=== PATIENT | female | born 1970 | race Asian ===

== ENCOUNTER → 2017-10-18 22:27 | Outpatient (CLI) | payer BC, SELFPAY ==
[2017-10-22 09:01] LABS: HPV APTIMA, High Risk Negative (Negative)
== END ==
PROVIDERS: Family Provider Family Medicine; PCP Family Medicine; Visit Provider Nurse Practitioner Women's Health
DX: Z12.4 Encounter for screening for malignant neoplasm of cervix (principal)
CPT/HCPCS: 88175; G0145

== ENCOUNTER → 2018-01-17 07:13 | Outpatient (CLI) | payer BC, SELFPAY ==
--- NOTE | 2018-01-17 07:20 | BI_ITS ---
MAMMOGRAPHY - BILATERAL SCREENING REASON FOR EXAM: Female, 47 years old. Routine annual screening examination. PERTINENT HISTORY: Non-contributory. TECHNIQUE: Digital bilateral breast daniela (3D mammographic acquisition) in the CC and MLO projections. 2-D mediolateral oblique (MLO) and craniocaudad (CC) views of both breasts were obtained. CAD: Full Field Digital Mammography with Computer Added Detection was performed. COMPARISON: Comparison is made with prior outside examination dated May 13, 2016. FINDINGS: Breast Composition: The breasts are heterogeneously dense, which may obscure small masses. There are no dominant masses or suspicious calcifications. No other significant abnormalities are identified. There has been no significant change since the prior study. BI/SCREENING MAMM (CAD), BILAT IMPRESSION: Stable bilateral screening mammogram. Yearly follow-up mammogram recommended. (A) ASSESSMENT CATEGORY: BIRADS Category 1: Negative. A letter regarding these results will be sent to the patient by the facility within 30 days. Approximately 10% of breast cancers are not detected by mammography. A normal mammogram should not delay biopsy of a clinically suspicious abnormality. [id number] Electronically Signed: Rickie Rubio MD at 8:31 EDT Tel [phone], Service support ,
== END ==
PROVIDERS: Family Provider Family Medicine; PCP Family Medicine; Visit Provider Nurse Practitioner Women's Health
DX: Z12.31 Encounter for screening mammogram for malignant neoplasm of breast (principal)
CPT/HCPCS: 77063; 77067

== ENCOUNTER → 2018-05-20 07:48 | Outpatient (CLI) | payer BC, SELFPAY ==
[2018-05-20 09:17] LABS: hCG Titer Quant., Serum < 1 mIU/mL (<9 non-preg)
== END ==
PROVIDERS: Family Provider Family Medicine; PCP Family Medicine; Referring Provider Obstetrics & Gynecology; Visit Provider Obstetrics & Gynecology
DX: O03.9 Complete or unspecified spontaneous abortion without complication (principal)
CPT/HCPCS: 36415; 84702

== ENCOUNTER → 2018-08-03 06:19 | Outpatient (CLI) | payer BC, SELFPAY ==
[2018-08-03 07:49] LABS: Absolute Lymphocyte Count 2.52 X10^3/ul (0.83-4.51); Absolute Neutrophil Count 4.3 X10^3/uL (2.0-7.7); Basophil# 0.02 X10^3/uL; Basophil% 0.3 % (0-1); Eosinophil# 0.19 X10^3/uL; Eosinophils% 2.5 % (0-5); Hematocrit 44.7 % (37-47); Hemoglobin 14.3 g/dl (12.0-15.0); Lymphocyte # 2.52 X10^3/ul (4.0); Lymphocyte % 33.4 % (19-41); Mean Corpuscular Hgb 28.5 pg (27.0-32.0); Mean Platelet Vol. 10.1 fl (6.2-12.0); Monocyte# 0.55 X10^3/uL; Monocyte% 7.3 % (0-10); Neutrophil # 4.26 X10^3/uL (2.7-7.7); Neutrophil % 56.5 % (47-70); Platelet Count 250 K/mm3 (150-450); RBC Distribution Width CV 12.8 % (11.6-14.6); RBC Distribution Width SD 41.2 fl (35.1-43.9); Red Blood Count 5.02 M/mm3 (4.2-5.4); White Blood Count 7.5 K/mm3 (4.4-11.0)
[2018-08-03 07:50] LABS: POSITIVE COUNT NO; POSITIVE DIFFERENTIAL NO; POSITIVE MORPHOLOGY NO
[2018-08-03 08:43] LABS: ALB/GLOB Ratio 0.9 RATIO (0.9-2.4); AST(SGOT) 17 U/L (15-37); Alanine Aminotransfer ALT/SGPT 21 U/L (13-56); Albumin, Serum 3.7 g/dL (3.2-5.0); Alkaline Phosphatase 67 U/L (45-117); Anion Gap 10 (5-15); BUN 12 mg/dL (7-18); BUN/Creat Ratio 17.9 RATIO (10-20); Calcium,Total 8.8 mg/dL (8.5-10.1); Chloride 104 mmol/L (98-107); Cholesterol 193 mg/dL (200); Creatinine, Serum 0.67 mg/dL (0.55-1.02); EST Glomerular Filtration Rate 100 mL/min (>60); Est Glom Filt Rate - Afr Amer 121 mL/min (>60); Globulin 4.2 g/dL (2.2-4.2); Glucose 102 mg/dL (74-106); High Density Lipoprotein 44 mg/dL; Potassium 4.2 mmol/L (3.5-5.1); Protein, Total 7.9 g/dL (6.4-8.2); Sodium Level 140 mmol/L (136-145); Triglycerides 201 mg/dL; Very Low Density Lipoprotein 40 mg/dL (5-40)
[2018-08-03 08:52] LABS: Vitamin D,25 Hydroxy 29.1 ng/mL (29.95-100.01)
--- NOTE | 2018-08-03 09:16 | STRESSREP_ITS ---
Stress Test Report Exercise myocardial perfusion stress test. 48-year-old lady with a history of chest pain. Medications: Clonazepam. Stress protocol: Resting EKG demonstrates normal sinus rhythm with a rate of 90 bpm and frequent premature ventricular complexes noted. Resting blood pressure 120/84 mmHg. The patient exercised according to regular Gaston protocol for total duration of 9 minutes completing stage III of the Gaston protocol. The maximum heart rate attained was 166 bpm which was 95% of maximum predicted heart rate the maximum workload was 10.1 metabolic equivalents. At rest there were no ST or T wave changes noted suggest ischemia. At peak exercise upsloping ST changes were noted we did not meet the criteria for ischemia. The patient was noted to have what appeared to be apparently conducted beats at a rate of approximately 136 bpm. During recovery the patient went back into sinus rhythm with no acute changes. Approximately 2-1/2 minutes into recovery there were frequent premature ventricular complexes which were noted in a pattern of a right bundle branch block. The resting blood pressure 120/84 with a peak blood pressure 140/84 mmHg. Myocardial perfusion protocol. 11.1 mCi of technetium 99m sestamibi was injected at rest. The patient exercised according to regular Gaston protocol for 9 minutes at peak exercise 32 .6 mCi of technetium 99m sestamibi was injected stress images were obtained stress and rest images were reconstructed and compared in the short axis vertical long and horizontal long axis. Gated images were also obtained. Perfusion SPECT analysis: Review of the stress images demonstrate normal uptake of tracer noted in all areas of the myocardium. The resting images similarly demonstrate normal uptake of tracer noted in all areas of the myocardium. No areas of reversibility are noted suggest ischemia. Gated SPECT analysis: Gated ejection fraction is noted to be 80%. Conclusion: Normal exercise myocardial perfusion stress test at a high workload. No clinical angina noted. Aberrantly conducted beats noted asymptomatic. Preserved ejection fraction.
== END ==
PROVIDERS: Family Provider Family Medicine; PCP Family Medicine; Referring Provider Family Medicine; Visit Provider Family Medicine
DX: R07.9 Chest pain, unspecified (principal); E55.9 Vitamin D deficiency, unspecified
CPT/HCPCS: 36415; 78452; 80053; 80061; 82306; 85025; 93017; A9500; A4216

== ENCOUNTER → 2020-06-11 | Outpatient (CLI) | payer BC, SELFPAY | END | disposition home or self-care (01) | PROVIDERS: PCP Family Medicine; Referring Provider Family Medicine; Visit Provider Family Medicine | DX: Z20.828 Contact with and (suspected) exposure to other viral communicable diseases (principal) | CPT/HCPCS: 87635; U0003 ==

== ENCOUNTER → 2021-06-16 11:45 | Outpatient (CLI) | payer BC, SELFPAY ==
[2021-06-16 15:28] LABS: Vitamin D,25 Hydroxy 25.7 ng/mL
[2021-06-16 15:35] LABS: Anion Gap 5 (5-15); BUN 7 mg/dL (7-18); BUN/Creat Ratio 13.1 RATIO (10-20); Calcium,Total 8.7 mg/dL (8.5-10.1); Chloride 104 mmol/L (98-107); Cholesterol 234 mg/dL (200); Creatinine, Serum 0.53 mg/dL (0.55-1.02); EST Glomerular Filtration Rate 129 mL/min (>60); Est Glom Filt Rate - Afr Amer 156 mL/min (>60); Glucose 82 mg/dL (74-106); High Density Lipoprotein 54 mg/dL; Potassium 3.7 mmol/L (3.5-5.1); Sodium Level 136 mmol/L (136-145); Triglycerides 193 mg/dL; Very Low Density Lipoprotein 39 mg/dL (5-40)
== END ==
PROVIDERS: PCP Family Medicine; Visit Provider Family Medicine
DX: Z00.00 Encounter for general adult medical examination without abnormal findings (principal); E55.9 Vitamin D deficiency, unspecified
CPT/HCPCS: 36415; 80048; 80061; 82306

== ENCOUNTER → 2022-06-29 | Outpatient (CLI) | payer BC, SELFPAY ==
--- NOTE | 2022-06-29 10:58 | RAD_ITS ---
STUDY: X-RAY CHEST REASON FOR EXAM: Female, 52 years old. COUGH TECHNIQUE: Single AP portable view of the chest. COMPARISON: None. FINDINGS: The lungs are clear and expanded. There is no demonstrated pleural abnormality. Normal size heart. Normal mediastinum and michael. Normal visualized pulmonary arteries. Normal visualized aortic arch and descending thoracic aorta. There are diffuse degenerative changes of the visualized thoracic spine. Normal visualized ribs, clavicles, and shoulders. There is no demonstrated abnormality of the visualized soft tissue structures of the upper abdomen. RAD/Chest PA and Lateral IMPRESSION: No demonstrated acute cardiopulmonary process. Electronically Signed: Luz Nagel MD at 16:50 EST Reading Location ID and State: [facility] / [place] Tel , Service support ,
[2022-07-02 12:08] LABS: QNTFERON TB Mitogen Value > 10.00 IU/mL (.); QNTFERON TB Nil Value 0.09 IU/mL (.); QNTFERON TB1+ Ag Value 0.11 IU/mL (.); QNTFERON TB2+ Ag Value 0.31 IU/mL (.)
[2022-07-02 17:09] LABS: QNTIFERON TB Positive Criteria Negative (Negative)
== END | disposition home or self-care (01) ==
PROVIDERS: PCP Family Medicine; Referring Provider Internal Medicine Pulmonary Disease; Visit Provider Internal Medicine Pulmonary Disease
DX: R05.9 Cough, unspecified (principal); R06.00 Dyspnea, unspecified
CPT/HCPCS: 36415; 71046; 86480

== ENCOUNTER → 2024-04-11 | Outpatient (CLI) | payer BC, SELFPAY ==
[2024-04-11 10:10] LABS: Anion Gap 7 (5-15); BUN 14 mg/dL (7-18); BUN/Creat Ratio 26.4 RATIO (10-20); Calcium,Total 8.9 mg/dL (8.5-10.1); Chloride 107 mmol/L (98-107); Cholesterol 224 mg/dL (200); Creatinine, Serum 0.53 mg/dL (0.55-1.02); EST Glomerular Filtration Rate 128 mL/min (>60); Est Glom Filt Rate - Afr Amer 155 mL/min (>60); Glucose 106 mg/dL (74-106); High Density Lipoprotein 51 mg/dL; Sodium Level 141 mmol/L (136-145); Triglycerides 144 mg/dL; Very Low Density Lipoprotein 29 mg/dL (5-40)
== END | disposition home or self-care (01) ==
LOC: MTLAB 07:56
PROVIDERS: PCP Family Medicine; Referring Provider Family Medicine; Visit Provider Family Medicine
DX: Z00.00 Encounter for general adult medical examination without abnormal findings (principal)
CPT/HCPCS: 36415; 80048; 80061; 82306

== ENCOUNTER 2024-07-03 08:31 | Day surgery (SDC) | payer BC, SELFPAY ==
[2024-07-03] VITALS (8 sets, daily range): BP systolic 91–112; BP diastolic 69–79; PULSE 83–97; RESP 16; TEMP 36.5–36.7; O2SAT 97–100; BMI 22.1
--- NOTE | 2024-07-03 08:39 | HP.PCM_ITS ---
[facility] - General General Date of Admission: 07/03/24 Date of Service: 07/03/24 Chief Complaint: Screening colonoscopy HPI Jean Paul GILL, is a 54 F who presents today for screening colonoscopy. She is never had a colonoscopy in the past. She has not had any abdominal pain, cramping, chest pain or shortness of breath. Overall she is in very good health. [facility] Medical History (Updated 06/30/24 @ 13:40 by Zahraa Christine) Post-menopausal Non-smoker Gestational diabetes Home Medications ?Medication ?Instructions ?Recorded ?Last Taken ?Type cholecalciferol (vitamin D3) 50 2,000 unit PO QDAY 04/26/24 Unknown History mcg (2,000 unit) capsule Allergy/AdvReac Type Severity Reaction Status Date / Time No Known Allergies Allergy Verified 06/30/24 13:36 Family History (Updated 04/26/24 @ 08:58 by Patt Lemus) Aunt Colon cancer In her 60's to early 70's Surgical History History of appendectomy Social History (Updated 04/26/24 @ 08:54 by Patt Lemus) household members: spouse current occupational status: employed Smoking Status: Never smoker alcohol intake: never substance use type: does not use caffeine: No what type of physical activity do you participate in: none seatbelt use: always do you feel safe at home: Yes additional social history: [employer] Patient is employed ROS Review of Systems ROS Unobtainable: other Constitutional Constitutional: Denies fatigue, fever(s), poor appetite, weight gain or weight loss ENT HEENT: Denies mouth lesions Cardiovascular Cardiovascular: Denies abdominal bloating, abdominal edema or abdominal pain Respiratory/Chest Respiratory/Chest: Denies change in mental status, change in phlegm color, chest congestion or chest tightness Gastrointestinal Gastrointestinal: Denies belching, bloating, change in bowel habits, change in stool character, chewing difficulty, coffee ground emesis, constipation, cramping, diarrhea, dyspepsia, dysphagia, early satiety, excessive flatus, fecal incontinence, heartburn, hematemesis, hematochezia, hemorrhoids, loose stools, melena, nausea, odynophagia, rectal bleeding, tenesmus, vomiting or weight changes Genitourinary Genitourinary: Denies abdominal discomfort, burning urination or itching Musculoskeletal Musculoskeletal: Reports as per HPI; Denies muscle weakness or myalgias Integumentary Integumentary: Denies jaundice Neurologic Neurologic: Denies lack of coordination or weakness Psychiatric Psychiatric: Denies confusion, depression, memory loss, mood swings, paranoia or suicidal ideation Endocrine Endocrinology: Denies systems reviewed and no addt'l complaints, except as documented Hematologic/Lymphatic Hematologic/Lymphatic: Denies anemia, easy bleeding, easy bruising or lymphadenopathy Allergic/Immunologic Allergic/Immunologic: Denies systems reviewed and no addt'l complaints, except as documented Physical Exam Const alert General Appearance: cooperative Orientation / Consciousness: oriented to person HEENT hearing grossly normal bilaterally Head and Scalp: normal to inspection Face and Sinus: face symmetric Nose: external nose normal Mouth: oral and palatal mucosa normal Eyes conjunctivae normal General Eye: normal appearance of both eyes Neck full ROM General: normal visual inspection Lymph Lymphatic: no lymphadenopathy noted Chest inspection of chest normal and palpation of chest normal Chest: symmetrical chest wall rise Resp normal respiratory effort Effort and Inspection: able to speak in complete sentences Cardio regular rate GI non-distended Percussion: normal to percussion Rectal Exam: deferred Neuro Speech: speech normal Gait (Neuro): normal gait Assessment & Plan Assessment/Plan (1) Encounter for screening for malignant neoplasm of colon: PLAN: She was explained alternatives, risk, benefits include not withstanding bleeding, infection, sepsis, perforation, need for charge and . She will have an ASA 3.
--- NOTE | 2024-07-03 08:40 | PRE.ANES_ITS ---
ASA Classification* ASA Classification ASA Classification: 2 Assessment & Plan Anesthesia* Anesthesia Assessment Anesthesia Assessment: Discussed sedation and/or anesthesia options, risks, benefits, and alternatives with patient/parents/legal guardian/POA. Questions invited. The patient/parents/legal guardian/POA seems to understand and agrees to proceed with anesthesia plan. Reviewed the physical assessment, medical history, allergy history and patient home medications list prior to surgery/procedure/anesthetic and documented any changes. Performed airway and anesthesia risk assessments. Anesthesia Type Anesthesia Type: MAC Anesthesia Focused Assessment* Airway Assessment Mouth opens: >3 cm Mallampati Score: II Focused Labs Anesthesia Preop lab: CBC WBC 7.5 K/mm3 (4.4-11.0) 08/03/18 06:30 RBC 5.02 M/mm3 (4.2-5.4) 08/03/18 06:30 Hgb 14.3 g/dl (12.0-15.0) 08/03/18 06:30 Hct 44.7 % (37-47) 08/03/18 06:30 Plt Count 250 K/mm3 (150-450) 08/03/18 06:30 CHEMISTRY Potassium 4.0 mmol/L (3.5-5.1) 04/11/24 07:57 Sodium 141 mmol/L (136-145) 04/11/24 07:57 BUN 14 mg/dL (7-18) 04/11/24 07:57 Creatinine 0.53 mg/dL (0.55-1.02) L 04/11/24 07:57 Glucose 106 mg/dL (74-106) 04/11/24 07:57 TSH 0.85 uIU/mL (0.358-3.74) 09/29/13 07:57 COAG HCG, Quant < 1 mIU/mL (<9 non-preg) 05/20/18 07:51 Pre-Assessment Diagnosis/Proposed Procedure Planned Operative Procedure(s): CSCOPE Anesthesia History 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 When Was Last Pacemaker Check QUESTION #4 FULL TEXT: You/Your Family Experience fever (hyperthermia) with Anesthesia Last Oral Intake Last Oral intake: Last Oral Intake NPO since Meds taken in AM with sips of water? Meds patient instructed to take am of surgery PONV PONV - auto damage insurance appraiser: PONV - auto damage insurance appraiser Female Yes 06/30/24 13:37 HX of Motion Sickness Yes 06/30/24 13:37 HX of N/V After Surgery No 06/30/24 13:37 Non-Smoker Yes 06/30/24 13:37 Duration of Surgery greater No 06/30/24 13:37 than 60 minutes Number of Risk Factors 3 06/30/24 13:37 PONV Score Moderate Risk 06/30/24 13:37 Height & Weight Height & Weight: Anesthesia: Height & Weight Height 4 ft 11 in 04/26/24 08:58 Respiratory Assessment Respiratory Assessment - auto damage insurance appraiser: Respiratory Tract Infection Hx - auto damage insurance appraiser Hx Respiratory Tract Infection No 06/30/24 13:37 STOP Sleep Apnea STOP Sleep Apnea - auto damage insurance appraiser: STOP Sleep Apnea - auto damage insurance appraiser Hx Hypertension No 06/30/24 13:37 Hx Sleep Apnea No 06/30/24 13:37 CPAP BIPAP Do you snore loudly (louder No 06/30/24 13:37 than talking or can be heard Do you often feel tired/ No 06/30/24 13:37 fatigued/ sleepy during daytime? Has anyone observed you stop No 06/30/24 13:37 breathing during sleep? STOP Results Negative 06/30/24 13:37 QUESTION #5 FULL TEXT : Do you snore loudly (louder than talking or can be heard through closed doors)? Tobacco Use History Tobacco Use History - auto damage insurance appraiser: Tobacco Use History - auto damage insurance appraiser Tobacco Use Smoking Status Never smoker 06/30/24 13:37 Hx Tobacco Use No 06/30/24 13:37 Years Smoking Packs Smoked per Day Smoking Cessation Date was within the last 15 years Hx Smoking Cessation Date Hx Smoking Cessation Counseling Hematologic Medial History Hematologic Hx - auto damage insurance appraiser: Hematologic Medical Hx - documentation liaison Hx of Blood Transfusion No 06/30/24 13:37 Hx of Transfusion in last 3 No 06/30/24 13:37 Months Date of Last Transfusion (if within last 3 months) Ever experience any problems No 06/30/24 13:37 with transfusion(s)? Specify any problems Hx of Preganancy in last 3 N/A 06/30/24 13:37 Months Nurse Filling Out Transfusion NBUCHER 06/30/24 13:37 & Questions: Date: 06/30/24 06/30/24 13:37 Time: 13:37 06/30/24 13:37 Patient unable to answer at this time (ie. confused, unrespo /Reproduction History /Reproductive History - auto damage insurance appraiser: /Reproductive Hx- auto damage insurance appraiser Hx Now No 06/30/24 13:37 Gestational Age (in weeks): EDC: Hx Hx Para Hx Section SAB No 06/30/24 13:37 ON LICENSE OF [facility] Medical History Post-menopausal Non-smoker Gestational diabetes Home Medications ?Medication ?Instructions ?Recorded ?Last Taken ?Type cholecalciferol (vitamin D3) 50 2,000 unit PO QDAY 04/26/24 Unknown History mcg (2,000 unit) capsule Allergy/AdvReac Type Severity Reaction Status Date / Time No Known Allergies Allergy Verified 06/30/24 13:36 Family History Aunt Colon cancer In her 60's to early 70's Surgical History History of appendectomy Social History household members: spouse current occupational status: employed Smoking Status: Never smoker alcohol intake: never substance use type: does not use caffeine: No what type of physical activity do you participate in: none seatbelt use: always do you feel safe at home: Yes additional social history: [employer] Patient is employed Review of Systems (Anesthesia) ROS Narrative System reviewed and no additional complaints, except as documented.
--- NOTE | 2024-07-03 10:01 | OP.COLON_ITS ---
Patient Name: Luis Simms Procedure Date: 07/03/2024 9:40 AM Date of : 1970 Age: 54 Procedure: Colonoscopy Indications: Screening for colorectal malignant neoplasm Providers: DO Stephen Sultana MD: Kang Alegre MD Medicines: Monitored Anesthesia Care Patient Profile: This is a 54 year old female. Refer to note in patient chart for documentation of history and physical. Last Colonoscopy: more than 10 years ago. Complications: No immediate complications. Procedure: Pre-Anesthesia Assessment: - Prior to the procedure, a History and Physical was performed, and patient medications and allergies were reviewed. The patient is competent. The risks and benefits of the procedure and the sedation options and risks were discussed with the patient. All questions were answered and informed consent was obtained. Patient identification and proposed procedure were verified by the physician in the pre-procedure area. Mental Status Examination: alert and oriented. Airway Examination: normal oropharyngeal airway and neck mobility. Respiratory Examination: clear to auscultation. CV Examination: normal. Prophylactic Antibiotics: The patient does not require prophylactic antibiotics. Prior Anticoagulants: The patient has taken no anticoagulant or antiplatelet agents except for NSAID medication. ASA Grade Assessment: II - A patient with mild systemic disease. After reviewing the risks and benefits, the patient was deemed in satisfactory condition to undergo the procedure. The anesthesia plan was to use monitored anesthesia care (MAC). Immediately prior to administration of medications, the patient was re-assessed for adequacy to receive sedatives. The heart rate, respiratory rate, oxygen saturations, blood pressure, adequacy of pulmonary ventilation, and response to care were monitored throughout the procedure. The physical status of the patient was re-assessed after the procedure. After I obtained informed consent, the scope was passed under direct vision. Throughout the procedure, the patient's blood pressure, pulse, and oxygen saturations were monitored continuously. The pediatric colonoscope was introduced through the anus and advanced to the cecum, identified by appendiceal orifice and ileocecal valve. The colonoscopy was performed without difficulty. The patient tolerated the procedure well. The quality of the bowel preparation was adequate. The ileocecal valve, appendiceal orifice, and rectum were photographed. Scope In: 9:49:16 AM Scope Withdrawal Time 0 hours 5 minutes 33 seconds Scope Out: 9:58:24 AM Total Procedure Duration Time 0 hours 9 minutes 8 seconds Findings: The perianal and digital rectal examinations were normal. The entire examined colon appeared normal on direct and retroflexion views. Impression: - The entire examined colon is normal on direct and retroflexion views. - No specimens collected. Recommendation: - Discharge patient to home. - Resume previous diet. - Continue present medications. - Repeat colonoscopy in 10 years for screening purposes. Procedure Code(s): --- Professional --- G0121, Colorectal cancer screening; colonoscopy on individual not meeting criteria for high risk CPT copyright 2021 [employer]. All rights reserved. The codes documented in this report are preliminary and upon [employer] review may be revised to meet current compliance requirements. Franklyn Thayer DO 07/03/2024 10:01:40 AM This report has been signed electronically. Number of Addenda: 0 Note Initiated On: 07/03/2024 9:40 AM
--- NOTE | 2024-07-03 10:02 | OP.CCLET_ITS ---
07/03/2024 Kang Alegre MD [address] [phone] Re : Colonoscopy procedure for Luis Simms Dear Dr. Alegre This procedure was performed on Wednesday, July 03, 2024. My impressions and recommendations are as follows: Impressions : - The entire examined colon is normal on direct and retroflexion views. - No specimens collected. Recommendations : - Discharge patient to home. - Resume previous diet. - Continue present medications. - Repeat colonoscopy in 10 years for screening purposes. My findings are described in the full procedure note, which is enclosed. If I can be of further assistance, please feel free to contact me at . Sincerely, Franklyn Thayer, 07/03/2024 10:01:40 AM This report has been signed electronically.
--- NOTE | 2024-07-03 10:05 | PCM.POST.ANE ---
Anesthesia: Postop Eval I Current Vital Signs Temperature: 98 F Pulse Rate: 97 Blood Pressure: 91/69 Respiratory Rate: 16 Pulse Ox: 97 Oxygen Delivery Method: Room Air Assessment Airway patent: Yes Spontaneous unlabored respirations: Yes Mental status: Asleep nausea: No Vomiting: No Anesthesia Complication: No Fluid Hydration Crystalloid volume administer (ml): 40 Total IV fluid infused: 40 Progress Note Anesthesia document: Postop Eval 1 completed: Yes
--- NOTE | 2024-07-03 17:47 | PCM.POSTANE2 ---
Anesthesia Postop Eval I Sum Postop Eval Completion status Anesthesia document: Postop Eval 1 completed: Yes Anesthesia Postop Eval I Summary Anesthesia Postop Eval I Summary: Anesthesia Postop Eval I: Assessment Summary Airway patent Yes 07/03/24 10:06 [email or web address] Spontaneous unlabored Yes 07/03/24 10:06 [email or web address] respirations Mental status Asleep 07/03/24 10:06 [email or web address] nausea No 07/03/24 10:06 [email or web address] Vomiting No 07/03/24 10:06 [email or web address] Anesthesia Postop Eval I: Fluid Summary Crystalloid volume administer 40 07/03/24 10:06 [email or web address] (ml) Colloids volume administered ( ml) Blood Product volume administered (ml) Total IV fluid infused 40 07/03/24 10:06 [email or web address] Anesthesia Postop Eval I: Summary Notes Anesthesia Complication No 07/03/24 10:06 [email or web address] Anesthesia Complication Comment: Post-operative progress note Anesthesia: Postop Eval II Evaluation Mental status: Awake Pain Level: 0 nausea: No Vomiting: No
== END 2024-07-03 10:53 | disposition home or self-care (01) ==
LOC: EN 08:32 → AC 08:33
PROVIDERS: PCP Family Medicine; Referring Provider Family Medicine; Visit Provider Internal Medicine Gastroenterology
PROC: 0DJD8ZZ Inspection of Lower Intestinal Tract, Via Natural or Artificial Opening Endoscopic (ICD-10-PCS; CPT 45378; principal; 2024-07-03 09:25)
DX: Z12.11 Encounter for screening for malignant neoplasm of colon (principal)
CPT/HCPCS: G0121; A4216; J2405

== ENCOUNTER → 2024-10-09 | Outpatient (CLI) | payer BC, SELFPAY ==
[2024-10-09 18:31] LABS: Uric Acid 4.2 mg/dL (2.6-6.0)
== END | disposition home or self-care (01) ==
LOC: MFPLAB 13:58
PROVIDERS: PCP Family Medicine; Referring Provider Family Medicine; Visit Provider Family Medicine
DX: M25.531 Pain in right wrist (principal)
CPT/HCPCS: 36415; 84550

== ENCOUNTER → 2025-03-19 | Outpatient (CLI) | payer BC, SELFPAY ==
[2025-03-19 16:16] LABS: Anion Gap 13 (5-15); BUN 10 mg/dL (4-19); BUN/Creat Ratio 19.4 RATIO (10-20); Calcium,Total 9.1 mg/dL (7.6-11.0); Carbon Dioxide 24.0 mmol/L (21.0-32.0); Chloride 102 mmol/L (98-108); Cholesterol 223 mg/dL (<=200); Glucose 95 mg/dL (70-99); Low Density Lipoprotein Calc. 143 mg/dL; Potassium 3.8 mmol/L (3.3-5.1); Triglycerides 110 mg/dL; Very Low Density Lipoprotein 22 mg/dL (5-40); Vitamin D,25 Hydroxy 17.7 ng/mL (30-100); cholesterol:hdl ratio screen 3.84
== END | disposition home or self-care (01) ==
LOC: MFPLAB 11:27
PROVIDERS: PCP Family Medicine; Referring Provider Family Medicine; Visit Provider Family Medicine
DX: Z00.00 Encounter for general adult medical examination without abnormal findings (principal); E55.9 Vitamin D deficiency, unspecified
CPT/HCPCS: 36415; 80048; 80061; 82306

== ENCOUNTER → 2025-07-05 | Outpatient (CLI) | payer BC, SELFPAY ==
--- NOTE | 2025-07-05 14:54 | BI_ITS ---
EXAM: SCRN MAMM (CAD)W/GERMAINE BILAT DATE: 07/05/2025 CLINICAL HISTORY: F, Age 55 y/o , SCREENING No family history. TECHNIQUE: Procedure Code: [id number] Modality: MG Procedure: SCRN MAMM (CAD)W/GERMAINE BILAT COMPARISON: Prior exam(s) dated January 17, 2018.. FINDINGS: TISSUE DENSITY: The breasts are heterogeneously dense, which may obscure small masses. Bilateral Breast Mammographic Findings: No significant masses, calcifications or other abnormalities are identified. Stable benign lymph nodes. No suspicious masses, areas of developing architectural distortion, or suspicious calcifications. There has been no significant interval change. BI/SCRN MAMM (CAD)W/GERMAINE BILAT IMPRESSION: Stable bilateral screening mammogram. OVERALL FINAL ASSESSMENT BI-RADS 2: BENIGN RECOMMENDATION: Routine annual follow-up in 1 Year Additional Recommendation none A letter with findings and recommendations will be mailed to the patient. Reading Location: [facility]-
--- NOTE | 2025-07-05 14:54 | BD_ITS ---
PROCEDURE: DEXA BONE DENSITY STUDY 07/05/2025 REASON FOR EXAM: F, age 55 y/o . Postmenopausal. TECHNIQUE: Procedure Code: BDDBD Modality: DX Procedure: DEXA BONE DENSITY STUDY COMPARISON: None FINDINGS: BMD and T-SCORES Lumbar spine: 0.913 g/cm2, T-score -1.2 Levels: L1 through L4 Left femoral neck: 0.611 g/cm2, T-score -2.1 Femoral neck comparison data not recommended for monitoring change. Left total hip: 0.740 g/cm2, T-score -1.7 Right femoral neck: 0.551 g/cm2, T-score -2.7 Femoral neck comparison data not recommended for monitoring change. Right total hip: 0.713 g/cm2, T-score -1.9 The World Health Organization has defined the following categories based on bone density: Normal bone density: T-score equal to or greater than -1.0 Osteopenia: T-score between -1.0 and -2.5 Osteoporosis: T-score equal to or less than -2.5 FRAX (or Comparable) Fracture Risk Assessment: 10 Year Probability of Fracture: Major Osteoporotic Fracture: 9% Hip Fracture: 2.0% (Note: FRAX is not to be reported in setting of normal range bone density, osteoporosis on DEXA, known history of osteoporosis, prior osteoporotic hip or vertebral fracture, or for any patient undergoing pharmacological treatment for bone loss.) The National Osteoporosis Foundation (NOF) recommends pharmacological treatment for patients with a FRAX 10-year risk of 3% or higher for a hip fracture, or 20% or higher for a major osteoporotic fracture, to prevent osteoporosis and reduce fracture risk. The patient does meet the pharmacological treatment recommendations for prevention of osteoporosis. BD/Dexa Bone Density Study IMPRESSION: OSTEOPOROSIS. Recommend follow-up as clinically warranted. Reading Location: [place] [id number]
== END | disposition home or self-care (01) ==
PROVIDERS: PCP Family Medicine; Referring Provider Family Medicine; Visit Provider Family Medicine
DX: Z13.820 Encounter for screening for osteoporosis (principal); Z78.0 Asymptomatic menopausal state; Z12.31 Encounter for screening mammogram for malignant neoplasm of breast
CPT/HCPCS: 77063; 77067; 77080